=== PATIENT | male | born 1960 | race Caucasian/White ===

== ENCOUNTER 2019-12-07 18:03 | Observation (INO) ==
[2019-12-07] MEDS ORDERED: 0.9 % Sodium Chloride 1,000 ML IVC ONE ×2 (18:36→20:44)
[2019-12-07] MEDS ORDERED: Isovue-370 500 ML BOTTLE IVP ONE (18:36)
[2019-12-07] MEDS ORDERED: *HR* FentaNYL (PF) 100 MCG/2 ML VIAL IVP ONE (18:36)
[2019-12-07] MEDS ORDERED: Ondansetron 4 MG/2 ML VIAL IVP ONE (18:39)
[2019-12-07 18:47] LABS: Basophils % 0.3 %; Eosinophils % 0.2 %; Hematocrit 39.3 % (37.5-50.1); Hemoglobin 12.9 g/dL (12.9-16.9); Immature Granulocytes % 0.2 % (0-4); Lymphocytes # 2.4 K/mcL (0.6-4.6); Lymphocytes % 17.9 %; Mean Corpuscular HGB Conc 32.8 g/dL (31.6-35.5); Mean Corpuscular Hemoglobin 32.3 pg (28.0-33.3); Mean Corpuscular Volume 98.5 fL (83.0-100.0); Mean Platelet Volume 10.5 fL (9.4-12.4); Monocytes # 1.3 K/mcL (0.0-1.3); Monocytes % 9.9 %; Neutrophils # 9.4 K/mcL (1.6-8.9); Platelet Count 306 K/mcL (140-400); Red Blood Count 3.99 M/mcL (4.19-5.50); Red Cell Distribution Width 12.6 % (11.5-14.5); Segmented Neutrophils % 71.5 %; White Blood Count 13.1 K/mcL (4.3-11.1)
[2019-12-07 18:56] LABS: Alanine Aminotransferase 7 Units/L (7-52); Albumin 3.9 g/dL (3.5-5.7); Albumin/Globulin Ratio 1.6 (1.1-2.2); Alkaline Phosphatase 105 Units/L (34-104); Aspartate Amino Transferase 11 Units/L (13-39); BUN/Creatinine Ratio 7 (6-26); Bilirubin,Direct 0.2 mg/dL (0.0-0.2); Bilirubin,Indirect 0.8 mg/dL (0.0-1.0); Blood Urea Nitrogen 6 mg/dL (8-23); Calcium 8.6 mg/dL (8.6-10.3); Carbon Dioxide 26 mEq/L (23-29); Chloride 108 mEq/L (98-107); Globulin 2.5 g/dL (2.4-3.5); Glucose 166 mg/dL (70-105); Lipase 7 Units/L (11-82); Osmolality,Calculated 293 (280-300); Potassium 3.3 mEq/L (3.5-5.1); Sodium 141 mEq/L (136-145); Total Protein 6.4 g/dL (6.4-8.9); eGFR For African Americans > 60 (> 60); eGFR For Non-African Americans > 60 (> 60)
[2019-12-07] MEDS ORDERED: Potassium Chloride 40 MEQ, Lidocaine 1% 2 ML in D5% in Water 500 ML IVPB ONE (20:44)
[2019-12-07] MEDS ORDERED: Morphine Sulfate 2 MG/ML SYRINGE IVP ONE (20:47)
[2019-12-07] MEDS ORDERED: Acetaminophen 325 MG TABLET PO PRN (21:11)
[2019-12-07] MEDS ORDERED: *HR* Promethazine 25 MG/ML VIAL IVP PRN (21:11)
[2019-12-07] MEDS ORDERED: Naloxone 0.4 MG/ML INJ IVP PRN (21:11)
[2019-12-08] MEDS: *HR* HYDROmorphone (PF) 1 MG/ML SYRINGE IVP PRN ×4 (00:23→20:09)
[2019-12-08] MEDS: 0.9 % Sodium Chloride 1,000 ML IVC SCH ×2 (00:26→08:12)
[2019-12-08 04:33] LABS: Bilirubin,Urine Negative (Negative); Blood,Urine Negative (Negative); Clarity,Urine Clear (Clear); Color,Urine Yellow (Yellow); Glucose,Urine (UA) Normal (Normal); Ketones,Urine Trace mg/dL (Negative); Leukocyte Esterase,Urine Negative (Negative); Nitrite,Urine Negative (Negative); PH,Urine 6.5 pH Units (5.0-8.0); Protein,Urine Trace mg/dL (Neg-Trace); Specific Gravity,Urine > 1.030 (1.010-1.025)
[2019-12-08 05:33] LABS: Hematocrit 34.3 % (37.5-50.1); Mean Corpuscular HGB Conc 32.7 g/dL (31.6-35.5); Mean Corpuscular Hemoglobin 33.8 pg (28.0-33.3); Mean Corpuscular Volume 103.6 fL (83.0-100.0); Mean Platelet Volume 10.4 fL (9.4-12.4); Platelet Count 230 K/mcL (140-400); Red Blood Count 3.31 M/mcL (4.19-5.50); Red Cell Distribution Width 12.7 % (11.5-14.5); White Blood Count 10.4 K/mcL (4.3-11.1)
[2019-12-08 05:35] LABS: Hemoglobin 11.2 g/dL (12.9-16.9)
[2019-12-08 05:50] LABS: BUN/Creatinine Ratio 10 (6-26); Blood Urea Nitrogen 6 mg/dL (8-23); Carbon Dioxide 24 mEq/L (23-29); Chloride 111 mEq/L (98-107); Glucose 91 mg/dL (70-105); Magnesium 1.8 mg/dL (1.6-2.6); Osmolality,Calculated 281 (280-300); Phosphorous 3.2 mg/dL (2.7-4.5); Potassium 3.7 mEq/L (3.5-5.1); Sodium 137 mEq/L (136-145); eGFR For African Americans > 60 (> 60); eGFR For Non-African Americans > 60 (> 60)
[2019-12-08] MEDS ORDERED: Fluticasone Propionate Nasal 50 MCG/SPRAY BOTTLE NS PRN (13:23)
[2019-12-08] MEDS ORDERED: NON-FORMULARY MEDICATION 1 EACH EACH (Omeprazole 40 MG) PO SCH (13:30)
[2019-12-08] MEDS: (Fish Oil 1,000 Mg Softgel) PO SCH (13:58)
[2019-12-08] MEDS: (Flaxseed Oil [Omega-3 Flaxseed Oil] 1,000 MG) PO SCH (13:58)
[2019-12-08] MEDS: tiZANidine 4 MG TABLET PO SCH ×2 (14:19→20:09)
[2019-12-08] MEDS: QUEtiapine Fumarate 25 MG TABLET PO SCH (14:20)
[2019-12-08] MEDS: Gabapentin 300 MG CAPSULE PO SCH ×2 (14:20→20:08)
[2019-12-08] MEDS: diazePAM 10 MG TABLET PO SCH ×2 (14:21→20:08)
[2019-12-08] MEDS: Prenatal Vit/FA 1 EACH TABLET PO SCH (14:25)
[2019-12-08] MEDS ORDERED: traZODone 50 MG TABLET PO SCH (21:00)
[2019-12-09] MEDS: *HR* HYDROmorphone (PF) 1 MG/ML SYRINGE IVP PRN ×3 (00:13→08:54)
[2019-12-09 04:28] LABS: Hematocrit 35.3 % (37.5-50.1); Hemoglobin 11.5 g/dL (12.9-16.9); Mean Corpuscular HGB Conc 32.6 g/dL (31.6-35.5); Mean Corpuscular Hemoglobin 32.4 pg (28.0-33.3); Mean Corpuscular Volume 99.4 fL (83.0-100.0); Mean Platelet Volume 10.7 fL (9.4-12.4); Platelet Count 236 K/mcL (140-400); Red Blood Count 3.55 M/mcL (4.19-5.50); Red Cell Distribution Width 12.4 % (11.5-14.5); White Blood Count 8.7 K/mcL (4.3-11.1)
[2019-12-09 04:45] LABS: BUN/Creatinine Ratio 8 (6-26); Blood Urea Nitrogen 5 mg/dL (8-23); Calcium 8.2 mg/dL (8.6-10.3); Carbon Dioxide 26 mEq/L (23-29); Chloride 109 mEq/L (98-107); Glucose 81 mg/dL (70-105); Osmolality,Calculated 282 (280-300); Potassium 3.8 mEq/L (3.5-5.1); Sodium 138 mEq/L (136-145); eGFR For African Americans > 60 (> 60); eGFR For Non-African Americans > 60 (> 60)
[2019-12-09] MEDS: Prenatal Vit/FA 1 EACH TABLET PO SCH (08:49)
[2019-12-09] MEDS: Gabapentin 300 MG CAPSULE PO SCH ×2 (08:49→15:20)
[2019-12-09] MEDS: diazePAM 10 MG TABLET PO SCH (08:49)
[2019-12-09] MEDS: QUEtiapine Fumarate 25 MG TABLET PO SCH (08:49)
[2019-12-09] MEDS: tiZANidine 4 MG TABLET PO SCH ×2 (08:50→15:20)
[2019-12-09] MEDS: (Flaxseed Oil [Omega-3 Flaxseed Oil] 1,000 MG) PO SCH (08:51)
[2019-12-09] MEDS: (Fish Oil 1,000 Mg Softgel) PO SCH (08:51)
[2019-12-09 15:04] VITALS: BP 155/80
== END 2019-12-09 16:59 | disposition home health service (06) ==
LOC: 3ANU 18:03 → EMEROOARM 18:03 → SUATTDRO 21:09 → 3ANU 21:54
PROVIDERS: ADMIT Student in an Organized Health Care Education/Training Program; ATTEND Internal Medicine

== ENCOUNTER 2019-12-28 22:42 | Observation (INO) ==
[2019-12-28] MEDS ORDERED: *HR* FentaNYL (PF) 100 MCG/2 ML VIAL IVP ONE (23:16)
[2019-12-28 23:32] LABS: Basophils # 0.1 K/mcL (0.0-0.2); Basophils % 0.7 %; Eosinophils # 0.3 K/mcL (0.0-0.6); Eosinophils % 2.3 %; Hematocrit 41.4 % (37.5-50.1); Hemoglobin 13.3 g/dL (12.9-16.9); Immature Granulocytes % 0.2 % (0-4); Lymphocytes % 24.4 %; Mean Corpuscular HGB Conc 32.1 g/dL (31.6-35.5); Mean Corpuscular Hemoglobin 32.3 pg (28.0-33.3); Mean Corpuscular Volume 100.5 fL (83.0-100.0); Mean Platelet Volume 10.7 fL (9.4-12.4); Monocytes # 1.4 K/mcL (0.0-1.3); Neutrophils # 7.5 K/mcL (1.6-8.9); Platelet Count 276 K/mcL (140-400); Red Blood Count 4.12 M/mcL (4.19-5.50); Red Cell Distribution Width 12.1 % (11.5-14.5); Segmented Neutrophils % 61.4 %; White Blood Count 12.2 K/mcL (4.3-11.1)
[2019-12-28 23:51] LABS: Amorphous Sediment,Urine Few per hpf (None-Few); Bilirubin,Urine Negative (Negative); Blood,Urine Negative (Negative); Clarity,Urine Turbid (Clear); Color,Urine Yellow (Yellow); Glucose,Urine (UA) Normal (Normal); Ketones,Urine Negative (Negative); Leukocyte Esterase,Urine Negative (Negative); Mucus,Urine Few per lpf (None-Few); Nitrite,Urine Negative (Negative); PH,Urine 7.5 pH Units (5.0-8.0); Protein,Urine Trace mg/dL (Neg-Trace); Specific Gravity,Urine 1.026 (1.010-1.025); Squamous Epithelial Cell,Urine Few per hpf (None-Few); Urobilinogen,Urine >=8.0 mg/dL (Normal); WBC,Urine 15-30 per hpf (0-3)
[2019-12-28 23:53] LABS: BUN/Creatinine Ratio 15 (6-26); Blood Urea Nitrogen 10 mg/dL (8-23); Calcium 8.6 mg/dL (8.6-10.3); Carbon Dioxide 27 mEq/L (23-29); Chloride 103 mEq/L (98-107); Ethanol < 10 mg/dL (Less than 10); Glucose 123 mg/dL (70-105); Magnesium 2.1 mg/dL (1.6-2.6); Osmolality,Calculated 284 (280-300); Phosphorous 2.4 mg/dL (2.7-4.5); Potassium 3.6 mEq/L (3.5-5.1); Sodium 137 mEq/L (136-145); Troponin I < 0.03 ng/mL (< 0.04); eGFR For African Americans > 60 (> 60); eGFR For Non-African Americans > 60 (> 60)
[2019-12-29] MEDS ORDERED: Ondansetron 4 MG/2 ML VIAL IVP ONE (00:01)
[2019-12-29] MEDS ORDERED: Acetaminophen 325 MG TABLET PO PRN (01:59)
[2019-12-29] MEDS ORDERED: Naloxone 0.4 MG/ML INJ IVP PRN (01:59)
[2019-12-29] MEDS: 0.9 % Sodium Chloride 1,000 ML IVC SCH ×2 (04:34→14:52)
[2019-12-29] MEDS: cefTRIAXone 1,000 MG in 0.9 % Sodium Chloride Mini Bag 100 ML IVPB SCH (04:34)
[2019-12-29 04:47] LABS: Basophils # 0.1 K/mcL (0.0-0.2); Basophils % 0.7 %; Eosinophils # 0.3 K/mcL (0.0-0.6); Eosinophils % 2.5 %; Hematocrit 37.1 % (37.5-50.1); Hemoglobin 11.9 g/dL (12.9-16.9); Immature Granulocytes % 0.2 % (0-4); Lymphocytes # 2.8 K/mcL (0.6-4.6); Lymphocytes % 22.7 %; Mean Corpuscular HGB Conc 32.1 g/dL (31.6-35.5); Mean Corpuscular Hemoglobin 32.6 pg (28.0-33.3); Mean Corpuscular Volume 101.6 fL (83.0-100.0); Mean Platelet Volume 10.7 fL (9.4-12.4); Monocytes # 1.8 K/mcL (0.0-1.3); Monocytes % 14.6 %; Neutrophils # 7.3 K/mcL (1.6-8.9); Platelet Count 239 K/mcL (140-400); Red Blood Count 3.65 M/mcL (4.19-5.50); Red Cell Distribution Width 12.1 % (11.5-14.5); Segmented Neutrophils % 59.3 %; White Blood Count 12.3 K/mcL (4.3-11.1)
[2019-12-29] MEDS ORDERED: Fluticasone Propionate Nasal 50 MCG/SPRAY BOTTLE NS PRN (04:57)
[2019-12-29 05:02] LABS: BUN/Creatinine Ratio 17 (6-26); Blood Urea Nitrogen 10 mg/dL (8-23); Calcium 8.3 mg/dL (8.6-10.3); Carbon Dioxide 26 mEq/L (23-29); Chloride 105 mEq/L (98-107); Glucose 95 mg/dL (70-105); Osmolality,Calculated 283 (280-300); Potassium 3.9 mEq/L (3.5-5.1); Sodium 137 mEq/L (136-145); eGFR For African Americans > 60 (> 60); eGFR For Non-African Americans > 60 (> 60)
[2019-12-29] MEDS: tiZANidine 4 MG TABLET PO SCH ×3 (09:08→19:33)
[2019-12-29] MEDS: diazePAM 10 MG TABLET PO SCH ×2 (09:08→19:33)
[2019-12-29] MEDS: Gabapentin 300 MG CAPSULE PO SCH ×3 (09:09→19:33)
[2019-12-29] MEDS: Prenatal Vit/FA 1 EACH TABLET PO SCH (09:09)
[2019-12-29] MEDS: traZODone 50 MG TABLET PO SCH (19:37)
[2019-12-30] MEDS: cefTRIAXone 1,000 MG in 0.9 % Sodium Chloride Mini Bag 100 ML IVPB SCH (01:02)
[2019-12-30 05:52] LABS: Basophils # 0.1 K/mcL (0.0-0.2); Basophils % 0.9 %; Eosinophils # 0.4 K/mcL (0.0-0.6); Eosinophils % 5.6 %; Hematocrit 32.8 % (37.5-50.1); Hemoglobin 10.6 g/dL (12.9-16.9); Immature Granulocytes % 0.1 % (0-4); Lymphocytes # 2.9 K/mcL (0.6-4.6); Lymphocytes % 36.8 %; Mean Corpuscular HGB Conc 32.3 g/dL (31.6-35.5); Mean Corpuscular Hemoglobin 32.8 pg (28.0-33.3); Mean Corpuscular Volume 101.5 fL (83.0-100.0); Mean Platelet Volume 10.8 fL (9.4-12.4); Monocytes % 13.1 %; Neutrophils # 3.4 K/mcL (1.6-8.9); Platelet Count 255 K/mcL (140-400); Red Blood Count 3.23 M/mcL (4.19-5.50); Segmented Neutrophils % 43.5 %; White Blood Count 7.9 K/mcL (4.3-11.1)
[2019-12-30 06:00] LABS: BUN/Creatinine Ratio 15 (6-26); Blood Urea Nitrogen 9 mg/dL (8-23); Calcium 8.4 mg/dL (8.6-10.3); Carbon Dioxide 25 mEq/L (23-29); Chloride 110 mEq/L (98-107); Glucose 83 mg/dL (70-105); Magnesium 2.1 mg/dL (1.6-2.6); Osmolality,Calculated 288 (280-300); Phosphorous 3.2 mg/dL (2.7-4.5); Sodium 140 mEq/L (136-145); eGFR For African Americans > 60 (> 60); eGFR For Non-African Americans > 60 (> 60)
[2019-12-30] MEDS: Gabapentin 300 MG CAPSULE PO SCH ×3 (08:45→20:44)
[2019-12-30] MEDS: tiZANidine 4 MG TABLET PO SCH ×3 (08:45→20:45)
[2019-12-30] MEDS: diazePAM 10 MG TABLET PO SCH ×2 (08:45→20:46)
[2019-12-30] MEDS: Prenatal Vit/FA 1 EACH TABLET PO SCH (08:46)
[2019-12-30] MEDS: traZODone 50 MG TABLET PO SCH (20:44)
[2019-12-31] MEDS: cefTRIAXone 1,000 MG in 0.9 % Sodium Chloride Mini Bag 100 ML IVPB SCH (02:32)
[2019-12-31] MEDS: Prenatal Vit/FA 1 EACH TABLET PO SCH (09:33)
[2019-12-31] MEDS: tiZANidine 4 MG TABLET PO SCH ×3 (09:34→20:12)
[2019-12-31] MEDS: diazePAM 10 MG TABLET PO SCH ×2 (09:34→20:12)
[2019-12-31] MEDS: Gabapentin 300 MG CAPSULE PO SCH ×3 (09:34→20:12)
[2019-12-31] MEDS: traZODone 50 MG TABLET PO SCH (20:12)
[2020-01-01] MEDS: Prenatal Vit/FA 1 EACH TABLET PO SCH (08:43)
[2020-01-01] MEDS: diazePAM 10 MG TABLET PO SCH ×2 (08:43→21:22)
[2020-01-01] MEDS: tiZANidine 4 MG TABLET PO SCH ×3 (08:44→21:23)
[2020-01-01] MEDS: Gabapentin 300 MG CAPSULE PO SCH ×3 (08:45→21:22)
[2020-01-01] MEDS: Nicotine 14 MG PATCH.TD24 TD PRN (18:22)
[2020-01-01] MEDS: traZODone 50 MG TABLET PO SCH (21:22)
[2020-01-02] MEDS: tiZANidine 4 MG TABLET PO SCH ×3 (09:24→21:46)
[2020-01-02] MEDS: diazePAM 10 MG TABLET PO SCH ×2 (09:24→21:45)
[2020-01-02] MEDS: Gabapentin 300 MG CAPSULE PO SCH ×3 (09:24→21:45)
[2020-01-02] MEDS: Prenatal Vit/FA 1 EACH TABLET PO SCH (09:25)
[2020-01-02] MEDS: traZODone 50 MG TABLET PO SCH (21:46)
[2020-01-02] MEDS: Nicotine 14 MG PATCH.TD24 TD PRN (21:57)
[2020-01-03] MEDS: Gabapentin 300 MG CAPSULE PO SCH ×3 (09:08→20:41)
[2020-01-03] MEDS: Prenatal Vit/FA 1 EACH TABLET PO SCH (09:10)
[2020-01-03] MEDS: diazePAM 10 MG TABLET PO SCH ×2 (09:10→20:41)
[2020-01-03] MEDS: tiZANidine 4 MG TABLET PO SCH ×3 (09:11→20:40)
[2020-01-03] MEDS: traZODone 50 MG TABLET PO SCH (20:41)
[2020-01-03] MEDS: Nicotine 14 MG PATCH.TD24 TD PRN (20:47)
[2020-01-04] MEDS: Gabapentin 300 MG CAPSULE PO SCH ×3 (09:34→20:28)
[2020-01-04] MEDS: diazePAM 10 MG TABLET PO SCH ×2 (09:34→20:27)
[2020-01-04] MEDS: tiZANidine 4 MG TABLET PO SCH ×3 (09:35→20:27)
[2020-01-04] MEDS: Prenatal Vit/FA 1 EACH TABLET PO SCH (09:35)
[2020-01-04 15:20] LABS: Basophils # 0.1 K/mcL (0.0-0.2); Basophils % 0.8 %; Eosinophils # 0.2 K/mcL (0.0-0.6); Eosinophils % 2.4 %; Hematocrit 37.4 % (37.5-50.1); Hemoglobin 11.8 g/dL (12.9-16.9); Immature Granulocytes % 0.3 % (0-4); Lymphocytes # 2.6 K/mcL (0.6-4.6); Lymphocytes % 32.7 %; Mean Corpuscular HGB Conc 31.6 g/dL (31.6-35.5); Mean Corpuscular Hemoglobin 32.2 pg (28.0-33.3); Mean Corpuscular Volume 102.2 fL (83.0-100.0); Mean Platelet Volume 10.1 fL (9.4-12.4); Monocytes # 0.7 K/mcL (0.0-1.3); Monocytes % 8.9 %; Neutrophils # 4.4 K/mcL (1.6-8.9); Platelet Count 399 K/mcL (140-400); Red Blood Count 3.66 M/mcL (4.19-5.50); Red Cell Distribution Width 12.1 % (11.5-14.5); Segmented Neutrophils % 54.9 %
[2020-01-04 15:34] LABS: BUN/Creatinine Ratio 14 (6-26); Blood Urea Nitrogen 11 mg/dL (8-23); Calcium 8.6 mg/dL (8.6-10.3); Carbon Dioxide 27 mEq/L (23-29); Chloride 109 mEq/L (98-107); Glucose 105 mg/dL (70-105); Osmolality,Calculated 288 (280-300); Potassium 3.9 mEq/L (3.5-5.1); Sodium 139 mEq/L (136-145); eGFR For African Americans > 60 (> 60); eGFR For Non-African Americans > 60 (> 60)
[2020-01-04] MEDS: traZODone 50 MG TABLET PO SCH (20:25)
[2020-01-04] MEDS: Nicotine 14 MG PATCH.TD24 TD PRN (20:28)
[2020-01-04] MEDS: *HR* Promethazine 25 MG/ML VIAL IVP PRN (20:34)
[2020-01-05] MEDS: tiZANidine 4 MG TABLET PO SCH (07:41)
[2020-01-05] MEDS: Gabapentin 300 MG CAPSULE PO SCH (07:42)
[2020-01-05] MEDS: Prenatal Vit/FA 1 EACH TABLET PO SCH (07:42)
[2020-01-05] MEDS: diazePAM 10 MG TABLET PO SCH (07:42)
[2020-01-05 10:42] VITALS: BP 116/69
[2020-01-05 12:18] LABS: Adenovirus Not Detected (Not Detect); Coronavirus 229E Not Detected (Not Detect); Coronavirus HKU1 Not Detected (Not Detect); Coronavirus NL63 Not Detected (Not Detect); Coronavirus OC43 Not Detected (Not Detect); Human Metapneumovirus Not Detected (Not Detect); Human Rhinovirus/Enterovirus Not Detected (Not Detect); Influenza A Subtype 2009 H1 Not Detected (Not Detect); Influenza B Not Detected (Not Detect); Parainfluenza Virus 1 Not Detected (Not Detect); Parainfluenza Virus 2 Not Detected (Not Detect); Parainfluenza Virus 3 Not Detected (Not Detect); Parainfluenza Virus 4 Not Detected (Not Detect); SARS-CoV-2 Not Detected (Not Detect)
[2020-01-05 12:19] LABS: Bordetella Pertussis Not Detected (Not Detect); Chlamydophila pneumoniae Not Detected (Not Detect); Mycoplasma pneumoniae Not Detected (Not Detect); Respiratory Syncytial Virus Not Detected (Not Detect)
[2020-01-05] MEDS: *HR* Promethazine 25 MG/ML VIAL IVP PRN (12:56)
== END 2020-01-05 13:40 ==
LOC: 3BNU 22:42 → EMEROOARM 22:42 → SUATTDRO 12-29 01:06 → 3BNU 12-29 02:06
PROVIDERS: ADMIT Internal Medicine; ATTEND Family Medicine